=== PATIENT | female | born 1975 | race Caucasian/White ===

== ENCOUNTER → 2021-02-19 | Outpatient (CLI) | payer OTHER ==
--- NOTE | 2021-02-19 14:27 | EKG ---
[place] [address] ELECTROCARDIOGRAM REPORT Name: SARITA LE Room: [facility]#: [id number] Admission: 02/19/21 Attend Phys: Shey Mahajan, Discharge: Date of : 79 Date of Service: 02/19/21 1206 Report #: [id number] THIS REPORT FOR: //name// [facility] Test Date: 2021-02-19 Test Time: 12:06:41 Pat Name: SARITA LE Department: Room: Gender: Personnel Monitor: : 1975 Requested By: Shey Mahajan Order Number: [id number] MD: Gagandeep Ward Measurements Intervals [place] Rate: 66 P: 67 [place]: 141 QRS: 76 QRSD: 100 T: 63 QT: 416 QTc: 436 Interpretive Statements Sinus rhythm No previous ECG available for comparison Electronically Signed On 02-19-2021 14:27:15 [employer] by Gagandeep Ward [email or web address] <ELECTRONICALLY SIGNED> By: Gagandeep Ward MD, [facility] 02/19/21 1427 1206 05 Gagandeep Ward MD, FACC /EPI
== END ==
LOC: M.CRD 11:51
PROVIDERS: ATTEND Nurse Practitioner Family
DX: R00.2 Palpitations (principal)